=== PATIENT | female | born 1960 | race Two or more races ===

== ENCOUNTER 2019-10-30 08:28 | Day surgery (SDC) | payer OTHER ==
[~2019-10-30 08:28] MED LIST: CARVEDILOL ER40 MG PO; CRESTOR20 MG PO; HUMALOG100 UNIT/2; HYDRALAZINE HCL50 MG PO; IBRERSARTAN PO; LAMICTAL (ORAN1 EACH PO; LANTUS SOL100 UNIT/1
[2019-10-30] MEDS ORDERED: PERCOCET 5-3251 EACH PO (13:00)
== END 2019-10-30 16:00 | disposition home or self-care (01) ==
LOC: CIR.AMB 08:28 → ADM 11:00 → CIR.AMB 16:00
DX: C73 Malignant neoplasm of thyroid gland (principal)

== ENCOUNTER 2020-04-08 08:00 | Day surgery (SDC) | payer OTHER ==
[~2020-04-08] VITALS: Ht 147.3 cm; Wt 76.2 kg
[~2020-04-08 08:00] MED LIST changes: +CARVEDILOL12.5 M1 PO; +FORTAMET500 MG PO; +IRBESARTAN-HCT1 EAC1 PO; +PERCOCET 5-3251 EACH PO; +SYNTHROID75 MCG PO
[2020-04-09] MEDS ORDERED: PERCOCET 5-3251 EACH PO (12:14)
== END 2020-04-09 08:00 | disposition home or self-care (01) ==
LOC: EDSTATUS 08:00 → SURH 08:00 → CIR.AMB 08:00 → SURH 14:39 → O/R 14:39 → CIR.AMB 04-09 08:00 → O/R 04-09 13:30 → SURH 04-09 13:30
PROVIDERS: ATTEND Surgery
DX: C73 Malignant neoplasm of thyroid gland (principal)